=== PATIENT | female | born 1960 | race Caucasian/White ===

== ENCOUNTER 2017-01-12 10:12 | Emergency (ER) | payer OTHER ==
[~2017-01-12] VITALS: Ht 167.6 cm; Wt 90.2 kg
[2017-01-12 10:16] VITALS: TEMP 38.3; Ht 167.6 cm; Wt 90.2 kg
[2017-01-12] MEDS ORDERED: CIPROFLOXACIN 400MG / 200ML D5W IV STA (11:33)
[2017-01-12] MEDS ORDERED: KETOROLAC TROMETHAMINE 30 MG/ML VIAL IV STA (11:33)
[2017-01-12] MEDS ORDERED: SODIUM CHLORIDE 0.9% 1000ML 1,000 ML IV STA (11:33)
[2017-01-12] MEDS ORDERED: ACET-1256 PO (11:45)
[2017-01-12] MEDS ORDERED: LSN/10125 PO (11:45)
[2017-01-12] MEDS ORDERED: HYDR25CA PO (11:45)
[2017-01-12 11:51] LABS: BASO % 0.1 %; BASO ABS # 0.01 K/uL (0-0.2); COMPLETE YES; EOS % 1.2 %; HEMATOCRIT 42.8 % (37-47); IG% 0.1 %; LYMPH % 9.7 %; LYMPH ABS # 1.31 K/uL (1.2-3.4); MEAN CELL VOLUME 95.1 fL (80-100); MEAN CORPUSCULAR HEMOGLOBIN 31.3 pg (25-34); MEAN CORPUSCULAR HGB CONC 32.9 g/dl (32-36); MEAN PLATELET VOLUME 10.6 fL (7.4-10.4); MONO % 6.9 %; PLATELET COUNT 249 K/uL (130-400); WHITE BLOOD COUNT 13.55 K/uL (4.8-10.8)
[2017-01-12 12:12] LABS: URINE APPEARANCE TURBID (CLEAR); URINE COLOR ORANGE; URINE NITRITE POS (NEG); URINE PH 5.5 (4.5-7.5); URINE SPECIFIC GRAVITY 1.029 (1.000-1.030); UROBILINOGEN NEG (NEG); ZZUR CULT IF INDIC CLEAN CATCH YES
[2017-01-12 12:13] LABS: MANUAL MICROSCOPIC REQUIRED? NO; REVIEW REQ? YES; URINE BILIRUBIN 1+ (NEG)
[2017-01-12 12:16] LABS: BUN/CREATININE RATIO 22.7 (10-20); CALCIUM 9.6 mg/dl (8.5-10.1); POTASSIUM 3.8 mmol/L (3.5-5.1)
[2017-01-12 12:19] LABS: ALB/GLOB RATIO 0.8 (0.9-2)
--- NOTE | 2017-01-12 14:01 | DIAGNOSTIC IMAGING REPORT ---
(RENAL)RETROPERITONEA COMP HISTORY: Pain L flank pain, UTI, clinical pyelo COMPARISON: None. FINDINGS: Right kidney: Maximum dimension 10 1 cm. No evidence for hydronephrosis. Normal corticomedullary differentiation and cortical thickness. Left kidney: Maximum dimension 12.0 cm. Considerable hydronephrosis. Significant cortical thinning. Normal corticomedullary differentiation and cortical thickness. Bladder: No bladder wall thickening. The bilateral ureteral jets were identified. IMPRESSION: 1. Considerable left renal hydronephrosis with significant cortical thinning.. 2. Normal right kidney. The above report was generated using voice recognition software. It may contain grammatical, syntax or spelling errors. Electronically signed by: Leonel Cisneros M.D. 01/12/2017 2:00 PM Dictated Date/Time: 01/12/2017 1:56 PM
[2017-01-12] MEDS ORDERED: CIPR-255 PO (14:22)
--- NOTE | 2017-01-12 14:36 | EMERGENCY ROOM VISIT NOTE ---
History First contact with patient: 11:05 Chief Complaint: BACK PAIN Stated Complaint: SCIATICA W/URINARY INCONTINENCE History of Present Illness The patient is a 56 year old female who presents to the Emergency Room with complaints of sciatica and increased urinary frequency, dysuria and urgency. The patient has been dealing with sciatica since September. Her urinary symptoms started last night. The patient has not noticed any weakness in the lower extremities or saddle anesthesias. She does report that the pain is now going up into the left flank. She does report a history of kidney stones, but reports that the pain she has had with stones is much worse and different.. She denies any history of pyelonephritis. The patient reports that she has an appointment next week with Dr. Silvano Scott to consider an injection in her back. The patient otherwise does not have a local family doctor. 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 She has not had any recent fevers or chills, abdominal pain, diarrhea, chest pain or shortness of breath. She currently rates her discomfort an 8 out of 10. Review of Systems HEENT: Denies dizziness, visual problems, hearing loss, tinnitus. Denies difficulty swallowing or oral lesions. PULMONARY: Denies cough, shortness of breath, sputum production or hemoptysis. CARDIOVASCULAR: Denies chest pain, palpitations, dyspnea on exertion, orthopnea or peripheral edema. GASTROINTESTINAL: Denies diarrhea, constipation, nausea, vomiting, or abdominal pain. GENITOURINARY: See history of present illness. NEUROLOGIC: Denies history of epilepsy, CVA, TIA or chronic headaches. MUSCULOSKELETAL: Denies history of joint tenderness/swelling. SKIN: Denies rashes or lesions. PSYCHIATRIC: Denies history of depression or mental illness. ENDOCRINE: Denies history of diabetes or thyroid disorders. Past Medical/Surgical History Medical Problems: (1) Hypertension (2) Kidney stones Surgical Problems: (1) History of section (2) History of cholecystectomy (3) History of hysterectomy Family History FH: cancer FH: diabetes mellitus FH: gallbladder disease FH: hypertension Social History Smoking Status: Never Smoker Alcohol Use: occasionally Marital Status: Housing Status: lives with family Occupation Status: employed Current/Historical Medications Scheduled Ciprofloxacin Hcl (Cipro), 500 MG PO BID Hctz/Lisinopril (Lisinopril/Hctz 10/12.5 Mg), 1 TAB PO DAILY Scheduled PRN Acetaminophen (Tylenol), 1,000 MG PO UD PRN for Pain Hydroxyzine Pamoate (Vistaril), 1 CAP PO HS PRN for Sleep Physical Exam Vital Signs Date Time Temp Pulse Resp B/P (MAP) Pulse Ox O2 Delivery O2 Flow Rate FiO2 01/12/17 13:30 85 20 139/74 99 Room Air 01/12/17 11:50 78 20 151/83 97 Room Air 01/12/17 10:16 38.3 100 18 142/78 95 Room Air Physical Exam CONSTITUTIONAL: Healthy and well nourished. Alert and oriented X 3 with positive affect. Patient does not appear acutely or toxic. HEENT: Normocephalic, atraumatic. Pupils equal, round and reactive. No scleral icterus or conjunctival injection. NECK: Full active range of motion without discomfort. RESPIRATORY: Clear to auscultation bilaterally with no wheezing, crackles, rhonchi or stridor. CARDIOVASCULAR: Regular rate and rhythm with no murmurs, rubs or gallops. GASTROINTESTINAL: Bowel sounds present in all quadrants. Abdomen is soft and nontender to palpation without rigidity, guarding or rebound. Negative McBurney 's point tenderness. No left lower quadrant tenderness to palpation. Positive left CVA tenderness. MUSCULOSKELETAL: Full range of motion of all joints without discomfort. The patient has mild tenderness to palpation through the left lumbar spine and SI joint. Negative logroll. Negative sitting straight leg raise. INTEGUMENTARY: No rash or other significant dermatologic conditions noted. HEMATOLOGIC: No ecchymosis or petechiae. NEUROLOGIC: No focal neurologic deficits noted. Lower extremities are sensory intact. Medical Decision & Procedures ER Provider Diagnostic Interpretation: Retroperitoneal ultrasound shows a significant left hydronephrosis. Radiologist report is as follows: (RENAL)RETROPERITONEA COMP HISTORY: Pain L flank pain, UTI, clinical pyelo COMPARISON: None. FINDINGS: Right kidney: Maximum dimension 10 1 cm. No evidence for hydronephrosis. Normal corticomedullary differentiation and cortical thickness. Left kidney: Maximum dimension 12.0 cm. Considerable hydronephrosis. Significant cortical thinning. Normal corticomedullary differentiation and cortical thickness. Bladder: No bladder wall thickening. The bilateral ureteral jets were identified. IMPRESSION: 1. Considerable left renal hydronephrosis with significant cortical thinning.. 2. Normal right kidney. Laboratory Results 01/12/17 11:38 Red Blood Count 4.50, Mean Corpuscular Volume 95.1, Mean Corpuscular Hemoglobin 31.3, Mean Corpuscular Hemoglobin Concent 32.9, Mean Platelet Volume 10.6, Neutrophils (%) (Auto) 82.0, Lymphocytes (%) (Auto) 9.7, Monocytes (%) (Auto) 6.9, Eosinophils (%) (Auto) 1.2, Basophils (%) (Auto) 0.1, Neutrophils # (Auto) 11.11, Lymphocytes # (Auto) 1.31, Monocytes # (Auto) 0.94, Eosinophils # (Auto) 0.16, Basophils # (Auto) 0.01 01/12/17 11:38 Test 01/12/17 10:55 01/12/17 11:38 Urine Color ORANGE Urine Appearance TURBID (CLEAR) Urine pH 5.5 (4.5-7.5) Urine Specific [place] 1.029 (1.000-1.030) Urine Protein 3+ (NEG) Urine Glucose (UA) NEG (NEG) Urine Ketones NEG (NEG) Urine Occult Blood 3+ (NEG) Urine Nitrite POS (NEG) Urine Bilirubin 1+ (NEG) Urine Urobilinogen NEG (NEG) Urine Leukocyte Esterase LARGE (NEG) Urine WBC (Auto) >30 /hpf (0-5) Urine RBC (Auto) >30 /hpf (0-4) Urine Hyaline Casts (Auto) 1-5 /lpf (0-5) Urine Epithelial Cells (Auto) 5-10 /lpf (0-5) Urine Bacteria (Auto) NEG (NEG) Urine Pathogenic Casts /lpf (0) White Blood Count 13.55 K/uL (4.8-10.8) Red Blood Count 4.50 M/uL (4.2-5.4) Hemoglobin 14.1 g/dL (12.0-16.0) Hematocrit 42.8 % (37-47) Mean Corpuscular Volume 95.1 fL (80-100) Mean Corpuscular Hemoglobin 31.3 pg (25-34) Mean Corpuscular Hemoglobin Concent 32.9 g/dl (32-36) Platelet Count 249 K/uL (130-400) Mean Platelet Volume 10.6 fL (7.4-10.4) Neutrophils (%) (Auto) 82.0 % Lymphocytes (%) (Auto) 9.7 % Monocytes (%) (Auto) 6.9 % Eosinophils (%) (Auto) 1.2 % Basophils (%) (Auto) 0.1 % Neutrophils # (Auto) 11.11 K/uL (1.4-6.5) Lymphocytes # (Auto) 1.31 K/uL (1.2-3.4) Monocytes # (Auto) 0.94 K/uL (0.11-0.59) Eosinophils # (Auto) 0.16 K/uL (0-0.5) Basophils # (Auto) 0.01 K/uL (0-0.2) RDW Standard Deviation 45.0 fL (36.4-46.3) RDW Coefficient of Variation 13.0 % (11.5-14.5) Immature Granulocyte % (Auto) 0.1 % Immature Granulocyte # (Auto) 0.02 K/uL (0.00-0.02) Anion Gap 6.0 mmol/L (3-11) Est Creatinine Clear Calc Drug Dose 69.3 ml/min Estimated GFR () 71.9 Estimated GFR (Non- 62.1 BUN/Creatinine Ratio 22.7 (10-20) Calcium Level 9.6 mg/dl (8.5-10.1) Total Bilirubin 1.5 mg/dl (0.2-1) Aspartate Amino Transf (AST/SGOT) 22 U/L (15-37) Alanine Aminotransferase (ALT/SGPT) 35 U/L (12-78) Alkaline Phosphatase 50 U/L (45-117) Total Protein 8.1 gm/dl (6.4-8.2) Albumin 3.7 gm/dl (3.4-5.0) Globulin 4.4 gm/dl (2.5-4.0) Albumin/Globulin Ratio 0.8 (0.9-2) Lipase 118 U/L (73-393) The above labs were reviewed. White count is 13.55 with a left shift and no bandemia. BUN is slightly elevated, but creatinine is normal. Urinalysis is consistent with infection. Urine cultures are pending. Medications Administered Medications (Trade) Dose Ordered Sig/Mara Route Start Time Stop Time Status Last Admin Dose Admin Sodium Chloride 1,000 ml @ 999 mls/hr Q1H1M STAT IV 01/12/17 11:33 01/12/17 12:33 DC 01/12/17 11:45 999 MLS/HR Ketorolac Tromethamine (Toradol Inj) 30 mg NOW STAT IV 01/12/17 11:33 01/12/17 11:37 DC 01/12/17 11:45 30 MG Ciprofloxacin/ Dextrose (Cipro / D5W) 400 mg NOW STAT IV 01/12/17 11:33 01/12/17 11:37 DC 01/12/17 11:45 400 MG Procedure 1. IV hydration: The patient received a liter normal saline bolus 2. IV medications: Cipro 400 mg IV infusion and Toradol 30 mg IVP ED Course Patient history and physical exam were performed. Nurse's notes were reviewed. Vital signs were reviewed. The patient is febrile with a temperature of 38.3 C. Blood pressure is normal. Pulse rate is 100 with a normal O2 saturation on room air. Although the patient is concerned about her pain being related to sciatica, I also explained that her flank pain, fever and urine dip findings are consistent with UTI, likely pyelonephritis. I did suggest checking some labs, and being treated with IV antibiotics. I also discussed CT scanning versus ultrasound studies. The patient reports that her father does have a history of renal cancer, and has a strong family history of renal cysts. I therefore suggested an ultrasound study which would give us a little bit closer look at the kidney. The patient was in agreement. IV access was established and labs were drawn. The patient was hydrated with normal saline. She received IV Toradol for pain, and was also administered IV Cipro. Review of labs shows a mild leukocytosis with left shift and no bandemia. Creatinine is normal. Urinalysis is consistent with infection. Urine cultures are pending. Retroperitoneal ultrasound shows a left hydronephrosis. The patient reports notable improvement with hydration and IV Toradol, and felt well enough to go home. The patient was provided a prescription for Cipro 500 mg twice a day 10 days. She was provided contact information for the [facility] at [facility], at the request of the patient since the office is in the same building where the patient goes for treatment of her back. She was instructed to return to the emergency department for any progressively worsening flank pain , vomiting or developing fever. She will continue follow-up with Dr. Scott for her sciatica. The patient was happy with plan of care, and voiced understanding of all discharge instructions. Medical Decision Workup today is suggestive of pyelonephritis. The patient also has concurrent sciatic pain. Abdominal exam is otherwise benign, therefore I do not suspect diverticulitis, appendicitis, bowel obstruction, ischemic gut or mesenteric adenitis. At this point, I do not suspect an obstructive uropathy from a ureteral calculus. The patient denies any symptoms that are consistent with renal colic or stone. [facility] Drug Monitoring Program Search Results: patient reviewed within database, no issues identified Medication Reconcilliation Current Medication List: was personally reviewed by me Blood Pressure Screening Patient's blood pressure: Normal blood pressure Impression Primary Impression: Pyelonephritis Additional Impression: Left-sided low back pain with sciatica Departure Information Prescriptions Ciprofloxacin Hcl (CIPRO) 500 Mg Tab 500 MG PO BID for 10 Days, #20 TAB Prov: Abe Hampton PA 01/12/17 Referrals No Doctor, Assigned (PCP) Patient Instructions [facility] Problem Qualifiers Additional Impression: Left-sided low back pain with sciatica Chronicity: acute Sciatica laterality: sciatica of left side Qualified Codes: M54.42 - Lumbago with sciatica, left side
[2017-01-12 14:44] VITALS: BP 149/80; PULSE 86; O2SAT 98
--- NOTE | 2017-01-14 16:16 | Pharmacy Progress Note ---
ED Pharmacist Culture FollowUp Date of Service: Jan 14, 2017. Patient was sent home with a prescription for ciprofloxacin 500mg BID X 10 days , which should cover the E. Coli growing from the patient's urine culture.
== END 2017-01-12 14:44 | disposition home or self-care (01) ==
LOC: C.EDB 10:13 → C.EDA 14:44
DX: N12 Tubulo-interstitial nephritis, not specified as acute or chronic (principal); M54.42 Lumbago with sciatica, left side; I10 Essential (primary) hypertension; Z83.3 Family history of diabetes mellitus; Z82.49 Family history of ischemic heart disease and other diseases of the circulatory system

== ENCOUNTER → 2017-02-08 | Outpatient (CLI) | payer OTHER ==
[~2017-02-08] MED LIST: ACET-1256 PO; CIPR-255 PO; HYDR25CA PO; LSN/10125 PO
--- NOTE | 2017-02-08 11:01 | DIAGNOSTIC IMAGING REPORT ---
LUMBAR SPINE W/O CONTRAST CLINICAL HISTORY: 56 years-old Female with LUMBAR RADICULOPATHY. Acute low back pain with radiation into the left lower extremity for 2 months. No acute trauma. COMPARISON: Renal ultrasound 01/12/2017. TECHNIQUE: Multiplanar, multi sequence MRI of the lumbar spine was performed without intravenous contrast. FINDINGS: No focal bone marrow edema, fracture or marrow replacing process. Cortical thinning with renal sinus cysts or hydronephrosis of the left kidney redemonstrated with similar findings seen on comparison renal ultrasound. Moderate left renal atrophy also noted. Signal within the cord is within normal limits. Conus medullaris terminates at L1. T12-L1: No central canal or neural foraminal stenosis. L1-L2: No central canal or neural foraminal stenosis. Mild facet arthrosis. L2-L3: No central canal or neural foraminal stenosis. Mild facet arthrosis. L3-L4: Mild intervertebral disc space narrowing with small Schmorl's nodes. Mild facet arthropathy with ligamentum flavum thickening and trace facet effusions. Circumferential annular disc bulge flattens the ventral thecal sac. No significant central canal narrowing. There is mild inferior foraminal stenosis bilaterally. L4-L5: Mild to moderate intervertebral disc space narrowing is noted with a circumferential annular disc bulge. Additionally, there is an annular fissure with central/left paracentral disc extrusion extending 4 mm caudally causing mild central canal, moderate to severe left lateral recess and mild left foraminal narrowing. There is displacement of the adjacent L5 nerve root. Mild right foraminal narrowing also seen. Moderate facet arthrosis. L5-S1: Moderate intervertebral disc space narrowing with posterior spondylitic spurring, circumferential annular disc bulge and central broad-based disc protrusion with annular fissure causing mild central canal and moderate bilateral foraminal narrowing. Moderate facet arthrosis. IMPRESSION: 1. At L4-L5 there is mild to moderate intervertebral disc space narrowing with circumferential annular disc bulge and annular fissure with central/left paracentral disc extrusion causing mild central canal, moderate to severe left lateral recess and mild left foraminal narrowing abutting and displacing the adjacent left L5 nerve root. 2. Moderate intervertebral disc space narrowing at L5-S1 with discogenic degenerative changes and facet arthropathy noted causing mild central canal and moderate bilateral foraminal narrowing. 3. No fracture or focal bone marrow edema. 4. Atrophy with cortical thinning and marked hydronephrosis of the left kidney redemonstrated. The above report was generated using voice recognition software. It may contain grammatical, syntax or spelling errors. Electronically signed by: Johan Murray M.D. 02/08/2017 11:00 AM Dictated Date/Time: 02/08/2017 10:51 AM
== END | disposition home or self-care (01) ==
LOC: C.MRIBC 09:31
PROVIDERS: ATTEND Pain Medicine Interventional Pain Medicine
DX: M47.26 Other spondylosis with radiculopathy, lumbar region (principal); M47.27 Other spondylosis with radiculopathy, lumbosacral region